=== PATIENT | female | born 1980 | race Caucasian/White ===

== ENCOUNTER → 2020-06-25 14:57 | Outpatient (CLI) | payer BC, SELFPAY ==
--- NOTE | ~2020-06-25 | MM_ITS ---
EXAMINATION: MM screening jordan BI w kishore HISTORY: Screening mammogram TECHNIQUE: Craniocaudal and mediolateral oblique 3-D tomosynthesis images were obtained and synthetic 2-D images were generated. CAD analysis was submitted and interpreted. COMPARISON: 04/2019 [facility] bilateral digital screening mammogram BREAST PARENCHYMAL COMPOSITION: The breasts are heterogeneously dense, which may obscure small masses . FINDINGS: New masses are suggested in the right breast, in the posterior central and outer right [address]. There is no evidence of suspicious mass, calcification, or architectural distortion to suggest ma lignancy in either breast. There has been no suspicious interval change. Focal architectural distortion is suggested in the upper left breast (MLO Tomosynthesis image 35/93). Bilateral diagnostic mammography and bilateral breast ultrasound examination are recommended for furt her evaluation IMPRESSION: 1. Suggested new right breast masses and architectural distortion in upper left breast 2. Bilateral diagnostic mammography and bilateral breast ultrasound examination are recommended. BI-RADS Category 0: Incomplete: Needs additional imaging evaluation. Reviewed, dictated and finalized at location A. [employer]
== END ==
PROVIDERS: PCP Internal Medicine; Visit Provider Internal Medicine
DX: Z12.31 Encounter for screening mammogram for malignant neoplasm of breast (principal); R92.8 Other abnormal and inconclusive findings on diagnostic imaging of breast
CPT/HCPCS: 77063; 77067

== ENCOUNTER → 2020-07-29 08:48 | Outpatient (CLI) | payer BC, SELFPAY ==
--- NOTE | ~2020-07-29 | MMUS_ITS ---
EXAMINATION: MM diagnostic jordan BI w kishore, US breast BI complete HISTORY: Possible new right breast masses TECHNIQUE: Additional 3-D tomosynthesis images of the breasts were performed and synthetic 2-D images were generated. CAD analysis was submitted and interpreted. High resolution bilateral complete breas t ultrasound was performed. COMPARISON: Comparison to multiple prior studies sequentially, with oldest reviewed study dated 10/2018. BREAST PARENCHYMAL COMPOSITION: The breasts are heterogenously dense, which may obscure small masses. FINDINGS: MAMMOGRAPHIC FINDINGS: There are persistent nodular asymmetries in both breasts, although no discrete mass or architectural distortion is identified. There are no suspicious calcifications. ULTRASOUND: Right breast ultrasound: At 2:00, 12 cm from the nipple, there is a slightly irregular shaped hypoech oic mass with parallel orientation and posterior shadowing with internal vascularity. This mass measu res 1.7 x 1 x 0.7 cm. At 11:00, 11 cm from the nipple there is a 4 mm cyst. At 11:00, 11 cm from the nipple there is a 2 mm cyst. Left breast ultrasound: At 1:00, 13 cm from the nipple, there is a 6 mm cyst. At 1:00, 13 cm from the nipple, there is a 5 mm cyst. At 2:00, 13 cm from the nipple, there is a 4 mm cyst. At 2:00, 13 cm f rom the nipple, there is a 6 mm cyst. At 8:00, 8 cm from the nipple, there is a 4 mm cyst. No suspici ous sonographic masses in the left breast to suggest malignancy. IMPRESSION: 1. Slightly irregular shaped 1.7 cm hypoechoic right breast mass at 2:00, 12 cm from the nipple. 2. Stereotactic right breast biopsy recommended. BI-RADS category 4, suspicious findings. Reviewed, dictated and finalized at location A. IMPRESSION: 1. Slightly irregular shaped 1.7 cm hypoechoic right breast mass at 2:00, 12 cm from the nipple. 2. Stereotactic right breast biopsy recommended. BI-RADS category 4, suspicious findings.
== END ==
PROVIDERS: Visit Provider Internal Medicine
DX: R92.8 Other abnormal and inconclusive findings on diagnostic imaging of breast (principal)
CPT/HCPCS: 76641; 77062; 77066; G0279

== ENCOUNTER 2020-08-06 10:32 | Outpatient (CLI) | payer BC, SELFPAY ==
--- NOTE | ~2020-08-06 | MMUS_ITS ---
EXAMINATION: US breast biopsy RT w image, MM post biopsy invasive RT DATE: 08/06/2020 11:55 (accession [id number]), 08/06/2020 12:07 (accession [id number]) INDICATION: Indeterminate mass at the 2:00 location of the right breast. Ultrasound-guided core biops y is requested to evaluate for malignancy. TECHNIQUE AND FINDINGS: The risks and potential benefits of the procedure were discussed with the patient including bleeding and infection. A time out was performed. The skin of the right breast was prepared and draped in usua l sterile fashion. 1% lidocaine was used for superficial anesthesia. 1% lidocaine with epinephrine wa s used for deep anesthesia. A vacuum-assisted biopsy gun needle was advanced through to the outer edge of the region of interest from an inferior approach utilizing sonographic guidance. A total of four tissue core samples were ob tained through the lesion. A tissue marker clip was then placed at the biopsy site. Hemostasis was ac hieved. A sterile bandage was applied. The patient tolerated procedure well and there was no evidence of immediate complication. The patient was given verbal instructions to return to the Emergency Department in the event of severe breast pa in or rapid breast enlargement. A two view right breast mammogram was obtained to document tissue mar ker clip placement. IMPRESSION: 1. Successful ultrasound-guided vacuum-assisted biopsy of right breast mass with tissue marker placem ent. Reviewed, dictated and finalized at location A. IMPRESSION: 1. Successful ultrasound-guided vacuum-assisted biopsy of right breast mass wit h tissue marker placement.
== END 2020-08-06 10:33 | disposition home or self-care (01) ==
PROVIDERS: PCP Internal Medicine; Visit Provider Internal Medicine
DX: N63.12 Unspecified lump in the right breast, upper inner quadrant (principal); D24.1 Benign neoplasm of right breast
CPT/HCPCS: 19083; 88305; A4648

== ENCOUNTER → 2021-03-03 07:48 | Outpatient (CLI) | payer BC, SELFPAY ==
--- NOTE | ~2021-03-03 | MM_ITS ---
EXAMINATION: MM diagnostic jordan RT w kishore HISTORY: Recent benign right breast biopsy TECHNIQUE: ML, MLO and craniocaudal 3-D tomosynthesis images of the right breast were performed and s ynthetic 2-D images were generated. CAD analysis was submitted and interpreted. COMPARISON: 07/29/2020 bilateral diagnostic mammogram and bilateral complete breast ultrasound 06/25/2020ilateral digital screening mammogram BREAST PARENCHYMAL COMPOSITION: There are scattered areas of fibroglandular density. FINDINGS: There is a biopsy marker and a mass in the upper inner quadrant of the left breast, reporte d as benign fibroadenoma by pathology. No interval suspicious mass or architectural distortion or any malignant calcification, skin thickeni ng or retraction is noted. There are a few benign calcifications. IMPRESSION: 1. Benign findings; no mammographic evidence for malignancy 2. Routine mammographic screening is recommended BI-RADS Category 2: Benign finding(s). Reviewed, dictated and finalized at location A.
== END ==
PROVIDERS: Visit Provider Internal Medicine
DX: R92.8 Other abnormal and inconclusive findings on diagnostic imaging of breast (principal)
CPT/HCPCS: 77061; 77065; G0279

== ENCOUNTER → 2022-03-22 12:02 | Outpatient (CLI) | payer BC, SELFPAY ==
--- NOTE | ~2022-03-22 | MM_ITS ---
EXAMINATION: MM screening jordan BI w kishore HISTORY: Screening mammogram TECHNIQUE: Craniocaudal and mediolateral oblique 3-D tomosynthesis images were obtained and synthetic 2-D images were generated. CAD analysis was submitted and interpreted. COMPARISON: 03/03/2021 right diagnostic mammogram 08/06/2020 right ultrasound-guided biopsy 07/29/2020 bilateral diagnostic mammography and bilateral complete breast ultrasound , 04/2019 bilateral screening mammogram examinations BREAST PARENCHYMAL COMPOSITION: There are scattered areas of fibroglandular density. FINDINGS: There is a biopsy marker in the right breast. History of prior benign right breast biopsy. Limited benign calcifications. There is no evidence of suspicious mass, calcification, or architectur al distortion to suggest malignancy in either breast. There has been no suspicious interval change. IMPRESSION: 1. No mammographic evidence of malignancy. 2. Recommend routine screening mammography in one year. BI-RADS Category 2: Benign finding(s). Reviewed, dictated and finalized at location A. [employer]
== END ==
PROVIDERS: PCP Internal Medicine; Visit Provider Internal Medicine
DX: Z12.31 Encounter for screening mammogram for malignant neoplasm of breast (principal)
CPT/HCPCS: 77063; 77067

== ENCOUNTER 2023-08-30 13:41 | Outpatient (CLI) | payer OTHER, SELFPAY ==
--- NOTE | ~2023-08-30 | MM_ITS ---
EXAMINATION: MM screening jordan BI w kishore HISTORY: Screening TECHNIQUE: Craniocaudal and mediolateral oblique 3-D tomosynthesis images were obtained and synthetic 2-D images were generated. CAD analysis was submitted and interpreted. COMPARISON: Comparison to multiple prior studies sequentially, with oldest reviewed study dated 06/25. BREAST PARENCHYMAL COMPOSITION: Dense: The breasts are extremely dense, which lowers the sensitivity of mammography. FINDINGS: Bilateral nodular fibroglandular tissue in the upper outer quadrants as stable. There is no evidence of suspicious mass, calcification, or architectural distortion to suggest malignancy in eit her breast. There has been no suspicious interval change. IMPRESSION: 1. No mammographic evidence of malignancy. 2. Recommend routine screening mammography in one year. BI-RADS Category 2: Benign finding(s). Reviewed, dictated and finalized at location B.
== END 2023-08-30 13:42 ==
PROVIDERS: PCP Obstetrics & Gynecology; Visit Provider Internal Medicine
DX: Z12.31 Encounter for screening mammogram for malignant neoplasm of breast (principal)
CPT/HCPCS: 77063; 77067